=== PATIENT | female | born 1990 | race Caucasian/White ===

== ENCOUNTER 2018-11-23 09:08 | Outpatient (CLI) | payer OTHER ==
[2018-11-23] MEDS ORDERED: Iopamidol 300 61% 100 ML VIAL FS ONE (09:55)
--- NOTE | 2018-11-23 13:02 | RAD ---
IVP: INDICATION: Renal lithiasis and microscopic hematuria. FINDINGS: On the telegraph printer mechanic images, no suspicious calcification is evident. There are multiple phleboliths within t he lower pelvis. IUD is seen within the central pelvis. The immediate film demonstrates bilateral s ymmetric nephrograms. There is bilateral symmetric excretion. Excretory images performed over 45 mi nutes demonstrate normal-appearing segmentally opacified ureters. No focal filling defect or strictu re is evident. Visualized bladder is unremarkable. There is minimal postvoid residual. IMPRESSION: Normal IVP. POS: JENY
== END 2018-11-23 09:09 | disposition home or self-care (01) ==
LOC: RAD 09:08
PROVIDERS: ATTEND Urology
DX: N20.0 Calculus of kidney (principal); R31.29 Other microscopic hematuria
CPT/HCPCS: 74410; Q9967

== ENCOUNTER 2019-02-07 00:52 | Outpatient (CLI) | payer OTHER ==
[2019-02-07 11:57] LABS: BHCG - Serum Negative (NEGATIVE); Pregs Control Background? CLEAR/WHITE (CLR/WHITE); Pregs Control Bar Appear? YES (CONTROL BAR)
== END 2019-02-07 00:53 | disposition home or self-care (01) ==
LOC: LABBT 00:52
PROVIDERS: ATTEND Obstetrics & Gynecology
DX: Z01.812 Encounter for preprocedural laboratory examination (principal); N83.8 Other noninflammatory disorders of ovary, fallopian tube and broad ligament
CPT/HCPCS: 84703; 85027; 86850; 86900; 86901

== ENCOUNTER → 2019-02-08 | Day surgery (SDC) | payer OTHER ==
[2019-02-07 10:57] VITALS: BMI 39.3
[2019-02-07 11:45] LABS: Hemoglobin 13.3 g/dL (12.0-16.0); Mean Corpuscular Hemoglobin 29.8 pg (27.0-31.0); Mean Corpuscular Volume 90.6 fL (78.0-98.0); Mean Platelet Volume 7.9 fL (7.4-10.4); Platelet Count 269 thou/uL (130-400); RBC Distribution Width 11.7 % (11.5-14.5); Red Blood Cell (RBC) Count 4.44 mill/uL (4.20-5.40)
[~2019-02-08] MED LIST: Acetaminophen 500 MG TAB ONE; Bupivacaine HCl 0.5%/Epinephrine 1:200,000/PF 30 ml Vial ONE; CeleCOXIB 100 MG CAP ONE; Dexamethasone 20 MG/5 ML VIAL ONE; Famotidine/PF 20 mg/2ml Vial ONE; Fentanyl 100 MCG/2 ML VIAL ONE; Gabapentin 300 MG CAP ONE; Glycopyrrolate 0.2 MG/ML 5 ML SYRINGE ONE; Lidocaine 1% PF 5 ML VIAL ONE; Ondansetron PF 4 MG/2 ML Vial ONE; PROPOFOL 200 MG/20 ML VIAL ONE; Promethazine HCl 25 MG/ML VIAL ONE; Rocuronium Bromide 10 MG/ML (10ML VIAL) ONE
--- NOTE | 2019-02-09 08:24 | OP ---
DATE OF PROCEDURE: 02/08/2019 PREOPERATIVE DIAGNOSES: 1. Chronic pelvic pain. 2. Persistent complex left ovarian cyst. POSTOPERATIVE DIAGNOSES: 1. Chronic pelvic pain. 2. Endometriosis with a left ovarian endometrioma. PROCEDURE PERFORMED: Robotic assisted laparoscopic left ovarian cystectomy of endometrioma. SURGEON: Amalia Boles DO SOFTWARE DESIGN ENGINEER: Tam Castellanos MD ESTIMATED BLOOD LOSS: 75 mL. URINARY OUTPUT: 250 mL. IV FLUIDS: 1000 mL. ANESTHESIA: General. COMPLICATIONS: None. FINDINGS: Normal-appearing external genitalia. Normal vaginal and cervical epithelium. IUD strings seen. Normal-appearing uterus. Normal-appearing right fallopian tube and ovary. Enlarged left ovary with a 4-5 cm endometrioma. Enlarged, swelling and hydrosalpinx of the left fallopian tube due to the ovarian cyst with clubbing of the fimbriated end of the tube. INDICATIONS FOR THE PROCEDURE: Ms. Susie Mccann is a 28-year-old, G0, who presented to clinic for evaluation for a persistent left ovarian cyst that was complex in appearance, appeared to possibly be an endometrioma. She also reports chronic pelvic pain. The patient was counseled and recommended to have a laparoscopic ovarian cystectomy and diagnostic laparoscopy for sources for her pain. PROCEDURE IN DETAIL: The patient was brought to the operating room. She was placed under general anesthesia. The patient was placed in dorsal lithotomy position using Diego stirrups. She was prepped and draped in a sterile fashion. An official time-out was performed. A Mireles catheter was inserted. A single-sided speculum was placed in the vagina. The anterior aspect of the cervix was grasped with a single-tooth tenaculum and a Hulka manipulator was then inserted. The remaining instruments were removed from the vagina, gloves were exchanged. Attention was turned to the abdomen. An umbilical incision was made using the scalpel and a Veress needle was inserted into the peritoneal cavity noting a normal pressure. The peritoneal cavity was insufflated. An 8.5 mm trocar was then placed at the umbilicus. The anatomy was evaluated and the patient was placed in a steep Trendelenburg position. Corporate Development Analyst ports were placed using all 8 mm ports, 2 on the right and 1 on the left. All ports were placed using local anesthesia and under direct visualization. The robot was then docked to the patient. The instruments were inserted. The pelvic anatomy was evaluated. There was a small area of endometriosis on the epiploica near the appendix. The epiploica was elevated away from the bowel and this small area of endometriosis was removed and retained for pathology. The pelvis was then evaluated. There were no other signs of endometriosis with the exception of the endometrioma, but there were no other small endometriosis implants noted. The endometrioma was evaluated and the left ovary was elevated. The capsule of the left ovarian cyst was incised using monopolar scissors creating a layer space between the cyst and the normal ovarian tissue to create a plane for removal of the left endometrioma. During the process of the dissection, the endometrioma did rupture expressing chocolate appearing fluid. The fluid was suctioned promptly. The cyst wall of the endometrioma was then gradually dissected away from the normal-appearing ovarian tissue. There was distortion of the left fallopian tube with swelling of the left fallopian tube around the ovarian cyst. However, during this process, it did not appear to be damaged secondary to this surgical dissection. Once the entirety of the endometrial cyst wall was removed from the left ovary, the area was irrigated and cleared of all clot and debris, and hemostasis was obtained at the end of the dissection plane using cautery and also with application of FloSeal. The cyst wall was then placed into a 5-mm EndoCatch bag and removed. The pelvis was then thoroughly irrigated and cleared of all clot and debris. There were no additional areas of endometriosis that were able to be visualized. So, the instruments were removed and the robot was undocked from the patient. The patient was taken out of Trendelenburg position. The abdomen was deflated and all trocars were removed. The skin was closed using 4-0 Monocryl and Dermabond. The Hulka manipulator was removed from the vagina and the tenaculum site was hemostatic. The Mireles catheter was also removed. The patient was placed back in supine position. She was extubated without difficulty. All counts were correct x2. Job ID: [id number] MTDD
== END ==
LOC: SDC 11:26
PROVIDERS: ATTEND Obstetrics & Gynecology
PROC: 0TBB4ZZ Excision of Bladder, Percutaneous Endoscopic Approach (ICD-10-PCS; principal; 2019-02-08)
DX: N80.1 Endometriosis of ovary (principal); N70.11 Chronic salpingitis; G89.18 Other acute postprocedural pain; F41.9 Anxiety disorder, unspecified; G47.30 Sleep apnea, unspecified; G47.00 Insomnia, unspecified; F17.210 Nicotine dependence, cigarettes, uncomplicated; E66.9 Obesity, unspecified; Z68.39 Body mass index [BMI] 39.0-39.9, adult
CPT/HCPCS: 36415; 85027; 86850; 86900; 86901; 88305; J0670; J1100; J2001; J2405; J2550; J2704; J3010; S0028

== ENCOUNTER 2019-06-11 12:59 | Outpatient (CLI) | payer OTHER ==
--- NOTE | 2019-06-11 14:04 | ULT ---
US Renal Bilateral STANDARD: 06/11/2019 12:00 AM CLINICAL HISTORY: History of kidney stones. STUDY: Renal ultrasound COMPARISON: CT abdomen/pelvis 10/09/2018 FINDINGS: Right kidney: Echogenicity: Normal. Masses/cysts: None. Hydronephrosis: None. Calcifications: Nonshadowing echogenic foci may represent nonobstructing stones Length: 10.8 cm Left kidney: Echogenicity: Normal. Masses/cysts: None. Hydronephrosis: None. Calcifications: Nonshadowing echogenic foci may represent nonobstructing stones Length: 11.3 cm Limited visualization of the urinary bladder is unremarkable. IMPRESSION: Possible small nonobstructing bilateral renal calculi
== END 2019-06-11 13:00 | disposition home or self-care (01) ==
LOC: BICULT 12:59
PROVIDERS: ATTEND Urology
DX: N20.0 Calculus of kidney (principal)
CPT/HCPCS: 76770

== ENCOUNTER 2020-06-23 16:03 | Outpatient (CLI) | payer OTHER ==
--- NOTE | 2020-06-23 16:52 | ULT ---
Renal sonogram HISTORY: Renal calcifications. Flank pain. Right kidney is 12.3 cm length on today's exam. No hydronephrosis. Left kidney is 11.3 cm. Tiny echogenic foci may represent small nonobstructing calcifications. No hyd ronephrosis. Urinary bladder is unremarkable. Liver is diffusely echogenic. IMPRESSION : Nonobstructing tiny renal calculi. Hepato-steatosis.
== END 2020-06-23 16:04 | disposition home or self-care (01) ==
LOC: BICULT 16:03 → SCSULT 16:04
PROVIDERS: ATTEND Urology
DX: N20.0 Calculus of kidney (principal); K76.0 Fatty (change of) liver, not elsewhere classified
CPT/HCPCS: 76770